=== PATIENT | female | born 1995 | race African-American/Black ===

== ENCOUNTER 2020-07-03 15:11 | Emergency (ER) | payer MEDICAID ==
[~2020-07-03] VITALS: Ht 165.1 cm; Wt 64.0 kg
[2020-07-03 15:15] VITALS: BP 127/77
[2020-07-03] MEDS ORDERED: CYCLOBENZAPRINE 10MG TABLET PO ONE (16:15)
[2020-07-03] MEDS ORDERED: ACETAMINOPHEN 325MG TABLET PO ONE (16:15)
== END 2020-07-03 16:50 | disposition home or self-care (01) ==
LOC: ER 15:11
DX: M54.2 Cervicalgia (principal)
CPT/HCPCS: 99283